=== PATIENT | female | born 1950 | race Caucasian/White ===

== ENCOUNTER → 2017-09-29 | Outpatient (CLI) | payer MEDICARE | END | disposition home or self-care (01) | LOC: PLD 07:26 → LAB SHORT 07:26 | DX: D22.39 Melanocytic nevi of other parts of face (principal) | CPT/HCPCS: 88305 ==

== ENCOUNTER 2020-03-09 14:25 | Emergency (ER) | payer MEDICARE ==
[~2020-03-09] VITALS: Ht 154.9 cm; Wt 63.5 kg
[2020-03-09] MEDS ORDERED: Prozac40 MG PO (16:00)
== END 2020-03-09 16:40 | disposition home or self-care (01) ==
LOC: ER 14:25
DX: S00.03XA Contusion of scalp, initial encounter (principal); W10.9XXA Fall (on) (from) unspecified stairs and steps, initial encounter
CPT/HCPCS: 70450; 72125; 99283-25; A9270; L0160

== ENCOUNTER 2023-08-04 14:32 | Emergency (ER) | payer MEDICARE, OTHER ==
[~2023-08-04] VITALS: Ht 154.9 cm; Wt 63.5 kg
[~2023-08-04 14:32] MED LIST: Prozac40 MG PO
[2023-08-04] MEDS ORDERED: AUSTEDO6 MG PO (15:03)
[2023-08-04] MEDS ORDERED: Acetaminophen 325 MG TABLET PO ONE (15:10)
[2023-08-04] MEDS ORDERED: FentaNYL Citrate 50 MCG/ML 2 ML Injection IV ONE ×2 (15:50→17:00)
[2023-08-04] MEDS ORDERED: HYDROcodone 5-APAP 325 TAB PO ONE (17:05)
[2023-08-04] MEDS ORDERED: HYDR1TAB94 PO (17:39)
[2023-08-04 19:30] VITALS: BP 118/87
== END 2023-08-04 20:00 | disposition home or self-care (01) ==
LOC: ER 14:32
DX: S42.212A Unspecified displaced fracture of surgical neck of left humerus, initial encounter for closed fracture (principal); S00.03XA Contusion of scalp, initial encounter; W18.30XA Fall on same level, unspecified, initial encounter; Z79.899 Other long term (current) drug therapy
CPT/HCPCS: 70450; 72125; 73030; 82947; 93005; 93010; 96374; 96376; 99284-25; A9270; J3010

== ENCOUNTER 2024-12-11 12:13 | Inpatient (IN) | payer MEDICARE, OTHER ==
[~2024-12-11] VITALS: Ht 154.9 cm; Wt 63.5 kg
[~2024-12-11 12:13] MED LIST changes: +AUSTEDO6 MG PO; +HYDR1TAB94 PO
[2024-12-11] MEDS ORDERED: Ketorolac Tromethamine 30mg Vial IV ONE (12:55)
[2024-12-11] MEDS ORDERED: Morphine Sulfate 4 MG/1 ML Injection IV ONE (14:10)
[2024-12-11] MEDS ORDERED: Ondansetron HCl 2 MG / ML 2ML Vial IV PRN (14:15)
[2024-12-11] MEDS ORDERED: Morphine Sulfate 4 MG/1 ML Injection IV PRN (14:15)
[2024-12-11 14:25] LABS: BASOPHILS ABSOLUTE AUTO 0.02 K/mm3 (0.00-0.23); BASOPHILS PERCENT AUTO 0 % (0-2); EOSINOPHILS ABSOLUTE AUTO 0.01 K/mm3 (0.00-0.68); EOSINOPHILS PERCENT AUTO 0 % (0-6); Hematocrit 42.6 % (33.0-51.0); Hemoglobin 14.4 g/dL (11.5-16.0); IMMATURE GRAN ABSOLUTE AUTO 0.04 K/mm3 (0.00-0.10); IMMATURE GRAN PERCENT AUTO 0 % (0-1); LYMPHOCYTES ABSOLUTE AUTO 0.77 K/mm3 (0.84-5.20); LYMPHOCYTES PERCENT AUTO 6 % (21-46); MONOCYTES ABSOLUTE AUTO 0.72 K/mm3 (0.16-1.47); MONOCYTES PERCENT AUTO 5 % (4-13); Mean Corpuscular HGB Conc 33.8 g/dL (31.5-36.5); Mean Corpuscular Volume 95 fL (80-100); NEUTROPHILS ABSOLUTE AUTO 12.37 K/mm3 (1.96-9.15); NEUTROPHILS PERCENT AUTO 89 % (41-73); NRBC ABSOLUTE 0.00 K/mm3 (0.00-0.02); NRBC Auto 0.0 /100 WBC (0.0-0.2); Platelet Count 259 K/mm3 (150-400); RDW Coefficient Variation 13.9 % (11.7-14.2); RDW Standard Deviation 49.5 fL (35.1-46.3)
[2024-12-11 14:43] LABS: Alanine Aminotransfer (ALT/SGP 26.0 U/L (12-78); Albumin, Blood 3.7 g/dL (3.4-5.0); Albumin/Globulin Ratio 1.2 (0.8-1.8); Anion Gap 9.0 mmol/L (3-11); Aspartate Aminotrans (AST/SGOT 27.0 U/L (12-37); Bilirubin, Total 1.4 mg/dL (0.1-1.0); Blood Urea Nitrogen 14.0 mg/dL (8-24); CO2, Blood 24.0 mmol/L (21-32); Calcium, Blood 8.9 mg/dL (8.5-10.1); Chloride, Blood 110.0 mmol/L (98-108); Creatinine, Blood 0.62 mg/dL (0.40-1.00); Globulin, Blood 3.2 g/dL (2.2-4.0); Glucose, Blood 98.0 mg/dL (70-99); Potassium, Blood 3.5 mmol/L (3.5-5.5); Sodium, Blood 139.0 mmol/L (136-145); Total Protein, Blood 6.9 g/dL (6.4-8.2)
[2024-12-11] MEDS ORDERED: AUSTEDO PO (16:20)
[2024-12-11 17:05] VITALS: BP 147/79
--- NOTE | 2024-12-11 17:09 | NUR ---
PT ARRIVED TO 212 FROM ED. TRANSFERRED PT FROM [facility] TO BED. HAD TO CUT OFF PANTS AND UNDERWEAR D/T PAIN W/MOVEMENT. PLACED PT IN HOSPITAL GOWN. PUREWICK PLACED. ORIENTED TO USE OF CALL LIGHT. SPOUSE BEDSIDE.
--- NOTE | 2024-12-11 18:26 | NUR ---
summary PT RESTING IN BED, CALL LIGHT IN REACH. DENIES ANY NEEDS AT THIS TIME. ORDERS TO BE NPO AT [facility]. EDUCATED PT ON THIS AND PT VERBALIZED UNDERSTANDING.
[2024-12-11 19:12] VITALS: BP 117/64
[2024-12-12] VITALS (22 sets, daily range): BP systolic 93–148; BP diastolic 54–107
[2024-12-12] MEDS ORDERED: NS 1,000 ML IV SCH (05:00)
--- NOTE | 2024-12-12 05:28 | NUR ---
INDUSTRIAL EDITOR SUMMARY PT HERE FOR R FEMORAL NECK FRACTURE. PLAN FOR SURGERY LATER THIS MORNING. PAIN MANAGED WELL WITH IV MORPHINE 2 MG. PT IS AAOX4 AND ABLE TO MAKE HER NEEDS KNOWN. NPO SINCE MIDNIGHT. PT HAD NOT VOIDED THIS SHIFT SO BLADDER SCAN DONE AND SHOWED ONLY 337 ML. PT NOT ON IV FLUIDS SO NOTIFIED [employer] SCREW HOSPITALIST DR RANDALL AND RECIEVED ORDER TO START IV FLUIDS @ 75 ML/HR. PUREWICK EXTERNAL URINE CATHETER IN PLACE. PT ON 2L O2 VIA NC DUE TO SLIGHT DESAT AFTER PAIN MEDS, OTHER VSS. WCTM.
[2024-12-12 06:39] LABS: BASOPHILS ABSOLUTE AUTO 0.02 K/mm3 (0.00-0.23); BASOPHILS PERCENT AUTO 0 % (0-2); EOSINOPHILS ABSOLUTE AUTO 0.03 K/mm3 (0.00-0.68); EOSINOPHILS PERCENT AUTO 0 % (0-6); Hematocrit 42.2 % (33.0-51.0); Hemoglobin 13.9 g/dL (11.5-16.0); IMMATURE GRAN ABSOLUTE AUTO 0.02 K/mm3 (0.00-0.10); IMMATURE GRAN PERCENT AUTO 0 % (0-1); LYMPHOCYTES ABSOLUTE AUTO 0.71 K/mm3 (0.84-5.20); LYMPHOCYTES PERCENT AUTO 8 % (21-46); MONOCYTES ABSOLUTE AUTO 0.71 K/mm3 (0.16-1.47); MONOCYTES PERCENT AUTO 8 % (4-13); Mean Corpuscular HGB Conc 32.9 g/dL (31.5-36.5); Mean Corpuscular Volume 95 fL (80-100); NEUTROPHILS ABSOLUTE AUTO 7.62 K/mm3 (1.96-9.15); NEUTROPHILS PERCENT AUTO 84 % (41-73); NRBC ABSOLUTE 0.00 K/mm3 (0.00-0.02); NRBC Auto 0.0 /100 WBC (0.0-0.2); Platelet Count 231 K/mm3 (150-400); RDW Coefficient Variation 13.9 % (11.7-14.2); RDW Standard Deviation 48.9 fL (35.1-46.3)
[2024-12-12 07:01] LABS: Alanine Aminotransfer (ALT/SGP 25.0 U/L (12-78); Albumin, Blood 3.5 g/dL (3.4-5.0); Albumin/Globulin Ratio 1.1 (0.8-1.8); Anion Gap 7.0 mmol/L (3-11); Aspartate Aminotrans (AST/SGOT 23.0 U/L (12-37); Bilirubin, Total 2.3 mg/dL (0.1-1.0); Blood Urea Nitrogen 19.0 mg/dL (8-24); CO2, Blood 26.0 mmol/L (21-32); Calcium, Blood 8.9 mg/dL (8.5-10.1); Chloride, Blood 107.0 mmol/L (98-108); Creatinine, Blood 0.62 mg/dL (0.40-1.00); Globulin, Blood 3.2 g/dL (2.2-4.0); Glucose, Blood 118.0 mg/dL (70-99); Potassium, Blood 3.6 mmol/L (3.5-5.5); Sodium, Blood 136.0 mmol/L (136-145); Total Protein, Blood 6.7 g/dL (6.4-8.2)
[2024-12-12] MEDS ORDERED: Ondansetron HCl 2 MG / ML 2ML Vial IV PRN (07:30)
[2024-12-12] MEDS ORDERED: FentaNYL Citrate 50 MCG/ML 2 ML Injection IV PRN ×2 (07:30)
[2024-12-12] MEDS ORDERED: Morphine Sulfate 4 MG/1 ML Injection IV PRN (07:30)
[2024-12-12] MEDS ORDERED: Metoclopramide HCl 5MG / ML 2ML Vial IV PRN (07:30)
[2024-12-12] MEDS ORDERED: HYDROmorphone HCl/Pf 1MG SYR IV PRN (07:35)
[2024-12-12] MEDS ORDERED: Midazolam HCl 1MG / ML 2ML Vial ONE (08:05)
[2024-12-12] MEDS ORDERED: FentaNYL Citrate 50 MCG/ML 5 ML Injection ONE (08:05)
[2024-12-12] MEDS ORDERED: Magnesium Sulfate 500 MG / ML 2ML Vial ONE (08:18)
[2024-12-12] MEDS ORDERED: Ondansetron HCl 2 MG / ML 2ML Vial ONE (08:19)
[2024-12-12] MEDS ORDERED: Metoclopramide HCl 5MG / ML 2ML Vial ONE (08:19)
--- NOTE | 2024-12-12 08:54 | NUR ---
PT TO DAY SURGERY AT THIS TIME.
[2024-12-12] MEDS ORDERED: Misc. Tablet PO SCH (09:00)
[2024-12-12] MEDS ORDERED: Enoxaparin 40 MG/0.4 ML SYR SC SCH (09:00)
--- NOTE | 2024-12-12 09:01 | NUR ---
PT BROUGHT TO PACU VIA BED FROM RM 212 FOR PREOP CARE AT 0845. PLEASANT & COOPERATIVE. DENIES PAIN/NAUSEA AT THIS TIME. AFEBRILE/VSS. LR AT TKO. SURGICAL PACK COMPLETE. SURGICAL HAT/PAS SLEEVE TO LLE/BP CUFF PLACED. NO COMPLAINTS. WARM BLANKETS OFFER. WILL CONTINUE TO MONITOR VS.
--- NOTE | 2024-12-12 09:06 | NUR ---
PT TO OR 4 VIA BED IN STABLE CONDITION AT 0900. TALKATIVE & SMILING.
[2024-12-12] MEDS ORDERED: CeFAZolin Sodium 1000 mg Vial ONE (09:19)
[2024-12-12] MEDS ORDERED: CeFAZolin Sodium 2,000 MG in NS 100 ML IV SCH ×2 (09:20→17:30)
[2024-12-12] MEDS ORDERED: Tranexamic Acid 100 ML IV SCH (09:20)
[2024-12-12] MEDS ORDERED: Bupivacaine 0.5% W/EPI 1:200000 SDV 30 ML Vial ONE (09:45)
[2024-12-12] MEDS ORDERED: Sugammadex Sodium 200 MG/2ML SDV (100 MG/ML) ONE (10:39)
--- NOTE | 2024-12-12 11:55 | NUR ---
ARRIVAL PT ARRIVED TO UNIT FROM PACU. S/P R TASIA HIP. PT DENIES PAIN. DIFFICULTY FOLLOWING DIRECTIONS R/T [place]. GRABS AT THINGS AND ATTEMPTS TO REMOVE OXYGEN. CAN BE REDIRECTED. 93% OR HIGHER ON 3L NASAL CANULA. SUEL CDI.
[2024-12-12] MEDS ORDERED: DEUTETRABENAZINE PO SCH (14:10)
[2024-12-12] MEDS ORDERED: HYDROcodone 5-APAP 325 TAB PO PRN (14:40)
--- NOTE | 2024-12-12 16:42 | NUR ---
SHIFT SUMMARY NO ACUTE CHANGES SINCE ARRIVAL, PT REQUIRED STRAIGHT CATHING. STILL AWAITING ABILITY TO VOID. PT ABLE TO WORK WITH THERAPY BUT REMAINS UNSTEADY ON FEET R/T BASELINE INVOLUNTARY MOVEMENTS. REPORTS PAIN IMPROVED SINCE PROCEDURE. TOLERATING DIET WELL, NO NAUSEA.
--- NOTE | 2024-12-13 04:41 | NUR ---
SENIOR MAINTENANCE MECHANIC SUMMARY PT IS POD 0 FOR R TASIA HIP. AQUACEL DRESSING TO HIP C/D/I. PT WAS ABLE TO GET UP TO BSC TO VOID. PT IS A MAX 2 PERSON ASSIST WHEN GETTING OUT OF BED. REQUIRES A LOT OF VERBAL CUEING AND HAS TROUBLE FOLLOWING DIRECTION. VERY WEAK AND REQUIRES A LOT OF EFFORT FROM PT AND STAFF TO GET UP TO THE BSC DUE TO CHRONIC CONDITIONS AND HIP PAIN. PAIN CONTROLLED WITH PO PAIN MEDS, SEE MAR. NNAMDI, WCSUMAN.
[2024-12-13 04:48] LABS: BASOPHILS ABSOLUTE AUTO 0.02 K/mm3 (0.00-0.23); BASOPHILS PERCENT AUTO 0 % (0-2); EOSINOPHILS ABSOLUTE AUTO 0.12 K/mm3 (0.00-0.68); EOSINOPHILS PERCENT AUTO 1 % (0-6); Hematocrit 37.6 % (33.0-51.0); Hemoglobin 12.5 g/dL (11.5-16.0); IMMATURE GRAN ABSOLUTE AUTO 0.03 K/mm3 (0.00-0.10); IMMATURE GRAN PERCENT AUTO 0 % (0-1); LYMPHOCYTES ABSOLUTE AUTO 0.74 K/mm3 (0.84-5.20); LYMPHOCYTES PERCENT AUTO 9 % (21-46); MONOCYTES ABSOLUTE AUTO 0.75 K/mm3 (0.16-1.47); MONOCYTES PERCENT AUTO 9 % (4-13); Mean Corpuscular HGB Conc 33.2 g/dL (31.5-36.5); Mean Corpuscular Volume 97 fL (80-100); NEUTROPHILS ABSOLUTE AUTO 6.82 K/mm3 (1.96-9.15); NEUTROPHILS PERCENT AUTO 81 % (41-73); NRBC ABSOLUTE 0.00 K/mm3 (0.00-0.02); NRBC Auto 0.0 /100 WBC (0.0-0.2); Platelet Count 180 K/mm3 (150-400); RDW Coefficient Variation 14.1 % (11.7-14.2); RDW Standard Deviation 50.2 fL (35.1-46.3)
[2024-12-13 05:05] VITALS: BP 138/76
[2024-12-13 05:07] LABS: Anion Gap 8.0 mmol/L (3-11); Blood Urea Nitrogen 13.0 mg/dL (8-24); CO2, Blood 25.0 mmol/L (21-32); Calcium, Blood 8.0 mg/dL (8.5-10.1); Chloride, Blood 107.0 mmol/L (98-108); Creatinine, Blood 0.58 mg/dL (0.40-1.00); Glucose, Blood 116.0 mg/dL (70-99); Potassium, Blood 3.6 mmol/L (3.5-5.5); Sodium, Blood 136.0 mmol/L (136-145)
[2024-12-13 08:35] VITALS: BP 115/60
--- NOTE | 2024-12-13 09:04 | NUR ---
UPDATED PT EMAR TO MATCH PT HOME MEDICATION ADMIN TIME.
[2024-12-13] MEDS ORDERED: Cyclobenzaprine5 MG PO (13:00)
[2024-12-13] MEDS ORDERED: Aspir 8181 MG PO (13:00)
[2024-12-13] MEDS ORDERED: Norco 5-325 Ta1 EACH PO (13:01)
--- NOTE | 2024-12-13 13:21 | NUR ---
DISCHARGE NOTE PT IS A/OX4. 1XFWW AND GB, DISCHARGING HOME WITH AND HOME HEALTH. PT IS TOLERATING INTAKE AND VOIDING WELL. DRESSING IS C/D/I, SENT PT HOME WITH 2 AQUACEL DRESSING CHANGES. PT AND SPOUSE VERBALIZED UNDERSTANDING OF DISCHARGE INSTRUCTIONS AND WOUND CARE. PAIN MANAGED PER EMAR, PT D/C W/ PRESCRIPTION. PT LEFT WITH ALL BELONGINGS. ESCORTED OUT VIA AT 1320.
[2024-12-13] MEDS ORDERED: DEUTETRABENAZINE PO SCH (21:00)
== END 2024-12-13 13:30 | disposition home health service (06) | DRG 522 ==
LOC: ER 12:13 → SURS 14:12
PROVIDERS: Family Medicine; Orthopaedic Surgery Sports Medicine; Student in an Organized Health Care Education/Training Program; ADMIT Internal Medicine
PROC: 0SRR019 Replacement of Right Hip Joint, Femoral Surface with Metal Synthetic Substitute, Cemented, Open Approach (ICD-10-PCS; principal; 2024-12-12 09:00)
DX: S72.001A Fracture of unspecified part of neck of right femur, initial encounter for closed fracture (principal); G10 Huntington's disease; F41.8 Other specified anxiety disorders; E78.5 Hyperlipidemia, unspecified; Z79.891 Long term (current) use of opiate analgesic; Z83.3 Family history of diabetes mellitus; Z82.0 Family history of epilepsy and other diseases of the nervous system; Z82.49 Family history of ischemic heart disease and other diseases of the circulatory system; Z98.1 Arthrodesis status; Z98.890 Other specified postprocedural states; W18.30XA Fall on same level, unspecified, initial encounter
CPT/HCPCS: 36415; 36416; 73502; 80048; 80053; 85025; 93005; 93010; 94762; 96374; 97110; 97162; 97530; 99285-25; A9270; C1713; C1776; J0690; J1885; J2250; J2270; J2405; J2704; J2765; J3010; J3475; J7030; J7120